=== PATIENT | female | born 1945 | race Caucasian/White ===

== ENCOUNTER 2018-08-08 16:57 | Outpatient (REF) | payer OTHER, SELFPAY ==
[2018-08-08 20:30] LABS: Anion Gap 11.1 mmol/L (3-11); BUN 16 mg/dL (7-18); CO2 27.9 mmol/L (21.0-32.0); CREATININE 0.84 mg/dL (0.55-1.02); Calcium 9.8 mg/dL (8.5-10.1); Chloride 99 mmol/L (98-107); Cholesterol 282 mg/dL (50-200); Glucose 101 mg/dL (70-100); HDL Cholesterol 81 mg/dL (40-60); LDL CHOLESTEROL 172 mg/dL (<100); Sodium 138 mmol/L (136-145); TSH (W/Ref FT4) 1.41 uIU/mL (0.358-3.74); Triglyceride 117 mg/dL (30-150)
== END 2018-08-08 17:17 ==
LOC: NCHCN 16:57
PROVIDERS: PCP Physician Assistant Medical; Visit Provider Family Medicine
DX: I10 Essential (primary) hypertension (principal); E78.5 Hyperlipidemia, unspecified; R73.9 Hyperglycemia, unspecified; L02.222 Furuncle of back [any part, except buttock and flank]
CPT/HCPCS: 80048; 80061; 83721; 87077; 83036; 84443; 87070; 87186; 87205

== ENCOUNTER 2022-11-02 02:09 | Outpatient (CLI) | payer MEDICARE, SELFPAY ==
[2022-11-02 15:24] LABS: HCT 42.3 % (36.0-46.0); HGB 14.3 g/dL (11.2-15.7)
[2022-11-02 15:42] LABS: Hemoglobin A1C 5.9 % (<5.7)
[2022-11-02 16:29] LABS: Anion Gap 9.9 mmol/L (3-11); BUN 20 mg/dL (7-18); CO2 27.1 mmol/L (21.0-32.0); CREATININE 0.8 mg/dL (0.55-1.02); Calcium 9.6 mg/dL (8.5-10.1); Calculated LDL 206 mg/dL (<100); Chloride 103 mmol/L (98-107); Cholesterol 318 mg/dL (<200); Estimated GFR 75.84 (mL/min/1.73m2); Glucose 97 mg/dL (74-106); HDL Cholesterol 81 mg/dL (40-60); Potassium 4.2 mmol/L (3.5-5.1); Sodium 140 mmol/L (136-145); TSH 1.43 uIU/mL (0.36-3.74); Triglyceride 156 mg/dL (<150)
[2022-11-02 22:23] LABS: T3,Free 4.2 pg/mL (2.8-5.3)
== END 2022-11-02 02:10 | disposition home or self-care (01) ==
LOC: LBO 02:09
PROVIDERS: PCP Physician Assistant Medical; Visit Provider Family Medicine
DX: E78.5 Hyperlipidemia, unspecified (principal); R73.03 Prediabetes; R53.83 Other fatigue; I10 Essential (primary) hypertension
CPT/HCPCS: 36415; 80048; 80061; 83036; 84439; 84443; 84481; 85014; 85018